=== PATIENT | male | born 1995 | race Caucasian/White ===

== ENCOUNTER 2025-05-20 11:04 | Emergency (ER) | payer OTHER ==
[~2025-05-20] VITALS: Ht 180.3 cm; Wt 83.9 kg
== END 2025-05-20 12:41 | disposition home or self-care (01) ==
LOC: ER 11:04
DX: S51.812A Laceration without foreign body of left forearm, initial encounter (principal); W29.3XXA Contact with powered garden and outdoor hand tools and machinery, initial encounter
CPT/HCPCS: 12005; 90471; 90702; 90715; 99282-25